=== PATIENT | female | born 1960 | race Caucasian/White ===

== ENCOUNTER → 2017-04-23 | Outpatient (CLI) | payer BC | LOC: MC.RAD 06:53 | DX: Z12.31 Encounter for screening mammogram for malignant neoplasm of breast (principal) ==

== ENCOUNTER 2017-08-06 10:43 | Inpatient (IN) | payer BC ==
[~2017-08-06] VITALS: Ht 157.5 cm; Wt 81.0 kg
[2017-11-09] VITALS (12 sets, daily range): BP systolic 103–141; BP diastolic 55–93; PULSE 57–79; TEMP 98–98.7
[2017-11-09] MEDS ORDERED: PROVENTIL0.09 MG/A1 IH (01:03)
[2017-11-09] MEDS ORDERED: 00186-0370-20 IH (01:03)
[2017-11-09] MEDS ORDERED: TYLENOL PM EXTR1 TA1 PO (01:04)
[2017-11-09] MEDS ORDERED: SYNTHROID0.05 MG/TA PO (01:05)
[2017-11-09] MEDS ORDERED: GLUCOSAMINE & C1 TAB PO (01:05)
[2017-11-09] MEDS ORDERED: PRINIVIL10 MG PO (01:06)
[2017-11-09] MEDS ORDERED: PRIL40 PO (01:06)
[2017-11-09] MEDS ORDERED: PRILOSEC 20MG20 MG PO (01:07)
[2017-11-10 04:00] VITALS: BP 98/57; PULSE 64; TEMP 98.6
[2017-11-10 06:59] LABS: HEMATOCRIT 29.3 % (37.0-47.0); HEMOGLOBIN 9.4 g/dl (12.5-16.0)
[2017-11-10 07:13] VITALS: BP 127/77; PULSE 58; TEMP 97.6
[2017-11-10 11:02] VITALS: BP 114/67; PULSE 74; TEMP 98.1
[2017-11-10 16:15] VITALS: BP 111/60; PULSE 81; TEMP 98.8
[2017-11-10 20:08] VITALS: BP 122/71; PULSE 84; TEMP 98.4
[2017-11-11 04:21] VITALS: BP 125/86; BP 93/62; PULSE 84; PULSE 94; TEMP 98.2
[2017-11-11] MEDS ORDERED: XARELTO10 MG PO (06:43)
[2017-11-11] MEDS ORDERED: NORCO 325 MG-7.1 TAB PO (06:47)
[2017-11-11] MEDS ORDERED: ROXICODONE 55 MG/TAB PO (06:48)
[2017-11-11] MEDS ORDERED: ULTRAM 50MG TAB50 MG PO (06:50)
[2017-11-11 07:33] VITALS: BP 117/90; PULSE 76; TEMP 97.8
[2017-11-11 07:39] LABS: ALBUMIN 3.1 gm/dL (3.5-5.0); BILIRUBIN,TOTAL 0.8 mg/dL (0.0-1.0); CALCIUM 7.7 mg/dL (8.4-10.2); CREATININE, serum 0.46 mg/dL (0.52-1.25); POTASSIUM 4.1 mmol/L (3.4-5.0); TOTAL PROTEIN 5.9 gm/dL (6.4-8.2)
[2017-11-11 11:16] VITALS: BP 123/82; PULSE 92; TEMP 98.2
[2017-11-11 12:57] LABS: MUCOUS Present /lpf; PH 6 (5-8); URINE APPEARANCE Clear; URINE BACTERIA Rare /hpf; URINE BILIRUBIN Negative (NEGATIVE); URINE BLOOD 2+ (NEGATIVE); URINE COLOR Yellow; URINE GLUCOSE Negative (NEGATIVE); URINE KETONE Negative (NEGATIVE); URINE LEUKOCYTE ESTERASE Negative (NEGATIVE); URINE NITRATE Negative (NEGATIVE); URINE PROTEIN(semi-quant) Negative (NEGATIVE); URINE UROBILINOGEN Negative (NEGATIVE)
[2017-11-11 13:03] LABS: COLLECTION METHOD CLEAN CATCH
[2017-11-11 16:14] VITALS: BP 112/62; PULSE 96; TEMP 98
[2017-11-11 16:46] LABS: CREATININE, serum 0.56 mg/dL (0.52-1.25); POTASSIUM 4.3 mmol/L (3.4-5.0)
[2017-11-12 04:05] VITALS: BP 105/65; PULSE 82; TEMP 98.6
[2017-11-12 07:27] LABS: BASO % 0.4 % (0.0-2.0); EOS % 0.5 % (0-4.0); GRAN # 6.2 (1.4-6.5); GRAN % 72.6 % (42.2-75.2); LYMPH # 1.4 (1.2-3.4); LYMPH % 15.9 % (20.0-51.0); MEAN CELL VOLUME 92 fl (80.0-100.0); MEAN CORPUSCULAR HGB CONC 33 g/dl (33.0-37.0); MEAN PLATELET VOLUME 10.2 fl (7.4-10.4); MONO # 0.9 (0.1-0.6); MONO % 10.2 % (1.7-9.3); PLATELET COUNT 219 K/mm3 (130-400); RED BLOOD COUNT 2.59 M/mm3 (4.10-5.30); REDCELL DISTRIBUTION WIDTH-CV 13.3 % (11.5-14.5)
[2017-11-12 07:28] LABS: HEMATOCRIT 23.7 % (37.0-47.0); HEMOGLOBIN 7.8 g/dl (12.5-16.0); MEAN CORPUSCULAR HEMOGLOBIN 30 pg (27.0-31.0)
[2017-11-12 07:40] LABS: CALCIUM 8.1 mg/dL (8.4-10.2); CREATININE, serum 0.55 mg/dL (0.52-1.25); POTASSIUM 4.2 mmol/L (3.4-5.0)
[2017-11-12 07:43] VITALS: BP 94/63; PULSE 79; TEMP 98
[2017-11-12 09:59] VITALS: BP 103/60; PULSE 75
[2017-11-12 11:59] VITALS: BP 103/60; PULSE 93; TEMP 98.7
[2017-11-12 16:26] VITALS: BP 96/56; PULSE 75; TEMP 98
== END 2017-11-12 17:30 | disposition home or self-care (01) | DRG 462 ==
LOC: JCC 11-09 05:20
PROVIDERS: Internal Medicine; Nurse Practitioner; Orthopaedic Surgery; Physician Assistant
PROC: 0SRC0J9 Replacement of Right Knee Joint with Synthetic Substitute, Cemented, Open Approach (ICD-10-PCS; 2017-11-09)
PROC: 0SRD0J9 Replacement of Left Knee Joint with Synthetic Substitute, Cemented, Open Approach (ICD-10-PCS; principal; 2017-11-09 07:30)
DX: M17.0 Bilateral primary osteoarthritis of knee (principal); E87.1 Hypo-osmolality and hyponatremia; I10 Essential (primary) hypertension; D50.0 Iron deficiency anemia secondary to blood loss (chronic); J45.20 Mild intermittent asthma, uncomplicated
CPT/HCPCS: 99223; 99232-AI; A4314; A9284; C1713; C1776; J0690; J1100; J1885; J2250; J2405; J2704; J7120

== ENCOUNTER → 2017-11-02 | Outpatient (CLI) | payer BC ==
[2017-11-02 17:07] LABS: HIV 1/2 Antibodies Non-Reactive; HIV-1p24 Antigen Non-Reactive
== END ==
LOC: COL.LAB 15:35
PROVIDERS: Orthopaedic Surgery
DX: Z01.812 Encounter for preprocedural laboratory examination (principal); M19.90 Unspecified osteoarthritis, unspecified site

== ENCOUNTER → 2018-06-22 | Outpatient (CLI) | payer BC ==
[~2018-06-22] MED LIST: 00186-0370-20 IH; GLUCOSAMINE & C1 TAB PO; NORCO 325 MG-7.1 TAB PO; PRIL40 PO; PRILOSEC 20MG20 MG PO; PRINIVIL10 MG PO; PROVENTIL0.09 MG/A1 IH; ROXICODONE 55 MG/TAB PO; SYNTHROID0.05 MG/TA PO; TYLENOL PM EXTR1 TA1 PO; ULTRAM 50MG TAB50 MG PO; XARELTO10 MG PO
== END ==
LOC: MC.RAD 08:00
DX: Z12.31 Encounter for screening mammogram for malignant neoplasm of breast (principal)

== ENCOUNTER 2019-04-17 05:13 | Emergency (ER) | payer BC ==
[~2019-04-17] VITALS: Ht 157.5 cm; Wt 86.4 kg
[2019-04-17 05:17] VITALS: TEMP 97.4
[2019-04-17] MEDS ORDERED: FLEXERIL 1010 MG/TAB PO (06:03)
[2019-04-17 06:39] VITALS: BP 134/82; PULSE 78
== END 2019-04-17 06:40 | disposition home or self-care (01) ==
LOC: COL.ER 05:13
DX: S29.012A Strain of muscle and tendon of back wall of thorax, initial encounter (principal); S30.0XXA Contusion of lower back and pelvis, initial encounter; I10 Essential (primary) hypertension; E03.9 Hypothyroidism, unspecified; J45.909 Unspecified asthma, uncomplicated; R40.2412 Glasgow coma scale score 13-15, at arrival to emergency department; W10.9XXA Fall (on) (from) unspecified stairs and steps, initial encounter; Y92.59 Other trade areas as the place of occurrence of the external cause

== ENCOUNTER 2019-05-16 11:21 | Outpatient (RCR) | payer OTHER ==
[~2019-05-16 11:21] MED LIST changes: +FLEXERIL 1010 MG/TAB PO
== END 2019-07-26 | disposition home or self-care (01) ==
LOC: WSOH
DX: S30.0XXA Contusion of lower back and pelvis, initial encounter (principal); S20.20XA Contusion of thorax, unspecified, initial encounter; Z96.653 Presence of artificial knee joint, bilateral; J45.909 Unspecified asthma, uncomplicated; E03.9 Hypothyroidism, unspecified; I10 Essential (primary) hypertension; Y99.0 Civilian activity done for income or pay

== ENCOUNTER → 2020-03-26 | Outpatient (CLI) | payer BC | LOC: MC.RAD 10:25 | DX: Z12.31 Encounter for screening mammogram for malignant neoplasm of breast (principal) ==

== ENCOUNTER 2020-06-10 04:12 | Emergency (ER) | payer BC ==
[~2020-06-10] VITALS: Ht 157.5 cm; Wt 84.1 kg
[2020-06-10 04:19] VITALS: TEMP 97.6
[2020-06-10 04:52] LABS: BASO # 0.1 (0.0-0.2); BASO % 1.3 % (0.0-2.0); EOS # 0.9 (0.0-0.7); EOS % 9.3 % (0-4.0); GRAN # 5.3 (1.4-6.5); GRAN % 56.5 % (42.2-75.2); LYMPH # 2.2 (1.2-3.4); LYMPH % 23.7 % (20.0-51.0); MEAN CELL VOLUME 91 fl (80.0-100.0); MEAN CORPUSCULAR HEMOGLOBIN 28 pg (27.0-31.0); MEAN CORPUSCULAR HGB CONC 31 g/dl (33.0-37.0); MEAN PLATELET VOLUME 9.4 fl (7.4-10.4); MONO # 0.8 (0.1-0.6); PLATELET COUNT 378 K/mm3 (130-400); RED BLOOD COUNT 4.94 M/mm3 (4.10-5.30); REDCELL DISTRIBUTION WIDTH-CV 13.3 % (11.5-14.5)
[2020-06-10 05:08] LABS: ALBUMIN 4.5 gm/dL (3.5-5.0); BILIRUBIN,TOTAL 0.7 mg/dL (0.0-1.0); CALCIUM 9.4 mg/dL (8.4-10.2); CREATININE, serum 0.65 (0.52-1.25); POTASSIUM 3.8 mmol/L (3.4-5.0)
[2020-06-10 05:14] LABS: COLLECTION METHOD CLEAN CATCH
[2020-06-10 05:27] LABS: MUCOUS Present /lpf; PH 5 (5-8); SQUAMOUS EPITHELIAL 0-2 /hpf; URINE APPEARANCE Clear; URINE BACTERIA None Seen /hpf; URINE BILIRUBIN Negative (NEGATIVE); URINE BLOOD 2+ (NEGATIVE); URINE COLOR Yellow; URINE GLUCOSE Negative (NEGATIVE); URINE KETONE Negative (NEGATIVE); URINE LEUKOCYTE ESTERASE Negative (NEGATIVE); URINE NITRATE Negative (NEGATIVE); URINE PROTEIN(semi-quant) Negative (NEGATIVE); URINE UROBILINOGEN Negative (NEGATIVE)
[2020-06-10 06:25] VITALS: BP 124/88; PULSE 86
== END 2020-06-10 06:25 | disposition home or self-care (01) ==
LOC: COL.ER 04:12
PROVIDERS: Emergency Medicine
DX: R10.9 Unspecified abdominal pain (principal); E03.9 Hypothyroidism, unspecified; I10 Essential (primary) hypertension; Z79.01 Long term (current) use of anticoagulants; Z79.51 Long term (current) use of inhaled steroids; Z79.890 Hormone replacement therapy
CPT/HCPCS: J1885; J2405; J7030; Q9967

== ENCOUNTER → 2023-08-31 | Outpatient (CLI) | payer BC ==
[~2023-08-31] MED LIST changes: +OCUFLOX OPHTH DR5 ML OD
== END ==
LOC: MC.RAD 13:10
DX: Z12.31 Encounter for screening mammogram for malignant neoplasm of breast (principal)